=== PATIENT | female | born 1945 | race Caucasian/White ===

== ENCOUNTER 2016-04-07 10:56 | Observation (INO) | payer OTHER ==
[~2016-04-07] VITALS: Ht 162.6 cm; Wt 83.9 kg
[2016-04-07 12:03] LABS: HEMATOCRIT 50.3 % (36.0-46.0); MCH 28.7 PG (29.0-34.0); MCHC 33.4 G/DL (30.0-36.0); MCV 85.8 FL (83-99); MEAN PLAT.VOLUME 10.7 uM^3 (9.5-12.4); PLATELET COUNT 305 K/uL (156-360); RBC DIS.WIDTH-CV 13.1 % (11.8-14.6); RBC DIS.WIDTH-SD 40.7 % (39-53); RED BLOOD COUNT 5.86 M/uL (3.80-5.20); WHITE BLOOD COUNT 11.1 K/uL (4.1-10.2)
[2016-04-07 12:18] LABS: CHLORIDE 107 mEq/L (99-109); POTASSIUM 4.2 mEq/L (3.7-5.4); SODIUM 141 mEq/L (136-147)
[2016-04-07] MEDS ORDERED: LISINOPRIL10 MG PO (12:19)
[2016-04-07 12:20] LABS: GLUCOSE 127 mg/dL (70-99)
[2016-04-07] MEDS ORDERED: ACETAMINOPHN-T1 EACH PO (12:20)
[2016-04-07 12:21] LABS: ANION GAP 11 MEQ/L (2-14)
[2016-04-07] MEDS ORDERED: LOPRESSOR50 MG PO (12:21)
[2016-04-07] MEDS ORDERED: LO-DOSE ASPIRIN81 M2 PO (12:22)
[2016-04-07] MEDS ORDERED: LEVO-T75 MCG PO (12:22)
[2016-04-07] MEDS ORDERED: DIGOXIN250 MCG PO (12:23)
[2016-04-07] MEDS ORDERED: ZOCOR20 MG PO (12:23)
[2016-04-07 12:24] LABS: GFR ESTIMATE (CALCULATED) > 59 mL/min/; UREA NITROGEN (BUN) 14 mg/dL (9-23)
[2016-04-07 12:26] LABS: TROP-I INTERPRETATION NEGATIVE; TROPONIN-I < 0.01 ng/mL (0.0-0.30)
[2016-04-07 14:02] LABS: ADD MIUA? YES; BILIRUBIN NEGATIVE; BLOOD NEGATIVE; COLOR YELLOW ((YELLOW)); GLUCOSE (STRIP) NEGATIVE; KETONES NEGATIVE; LEUKOCYTES LARGE; NITRITE NEGATIVE; PROTEIN (STRIP) TRACE; SPECIFIC GRAVITY 1.018 (1.000-1.030); UROBILINOGEN 0.2 MG/DL (0.2-1.0)
[2016-04-07 14:32] LABS: CASTS NONE SEEN /LPF; CRYSTALS NONE SEEN; EPITHELIAL CELLS 1+; MUCUS NONE SEEN; PATHOLOGICAL CAST NONE SEEN; RED BLOOD CELLS 0-5 /HPF (0-5); SMALL ROUND CELL NONE SEEN; UCUL ADDED? NO; YEAST-LIKE CELL NONE SEEN
[2016-04-07 14:50] LABS: BACTERIA RARE
[2016-04-07 15:53] VITALS: BP 203/89
[2016-04-07 19:45] VITALS: BP 180/90
[2016-04-07 23:31] VITALS: BP 180/82
[2016-04-08] VITALS (7 sets, daily range): BP systolic 138–190; BP diastolic 68–82
[2016-04-08 05:57] LABS: BASOPHIL COUNT 0.1 K/uL (0-0.1); EOSINOPHIL (%) 2.6 % (0-5); EOSINOPHIL COUNT 0.3 K/uL (0-0.3); HEMATOCRIT 48.9 % (36.0-46.0); IMMATURE GRANULOCYTE (%) 0.1 % (0.0-0.7); LYMPHOCYTE COUNT 3.3 K/uL (1.0-2.8); MCH 30.3 PG (29.0-34.0); MCHC 34.4 G/DL (30.0-36.0); MCV 88.3 FL (83-99); MEAN PLAT.VOLUME 11.2 uM^3 (9.5-12.4); MONOCYTE (%) 5.9 % (3-12); MONOCYTE COUNT 0.6 K/uL (0-0.8); NEUTROPHIL (%) 57.1 % (45-76); NEUTROPHIL COUNT 5.6 K/uL (1.8-6.4); PLATELET COUNT 276 K/uL (156-360); RBC DIS.WIDTH-CV 13.3 % (11.8-14.6); RBC DIS.WIDTH-SD 42.9 % (39-53); RED BLOOD COUNT 5.54 M/uL (3.80-5.20); WHITE BLOOD COUNT 9.7 K/uL (4.1-10.2)
[2016-04-08 06:22] LABS: ANION GAP 10 MEQ/L (2-14); CHLORIDE 102 MEQ/L (99-109); GFR ESTIMATE (CALCULATED) > 59 mL/min/; GLUCOSE 112 mg/dL (70-99); POTASSIUM 4.2 MEQ/L (3.7-5.4); SAMPLE HEMOLYSIS CHECK 0; SAMPLE ICTERIC CHECK 0; SAMPLE LIPEMIA CHECK 0; SODIUM 141 MEQ/L (136-147); UREA NITROGEN (BUN) 13 mg/dL (9-23)
[2016-04-09 04:00] VITALS: BP 144/82
[2016-04-09 06:23] LABS: ANION GAP 11 MEQ/L (2-14); CHLORIDE 101 MEQ/L (99-109); GFR ESTIMATE (CALCULATED) > 59 mL/min/; GLUCOSE 111 mg/dL (70-99); SAMPLE HEMOLYSIS CHECK 0; SAMPLE ICTERIC CHECK 0; SAMPLE LIPEMIA CHECK 0; SODIUM 141 MEQ/L (136-147); UREA NITROGEN (BUN) 16 mg/dL (9-23)
[2016-04-09 12:00] VITALS: BP 140/85
[2016-04-09] MEDS ORDERED: DIGOXIN250 MCG PO (12:58)
[2016-04-09] MEDS ORDERED: TYLENOL EXTRA500 MG PO (12:59)
[2016-04-09] MEDS ORDERED: HYDROCORTISON28.4 GM TP (13:01)
[2016-04-09 15:25] VITALS: BP 138/74
[2016-04-09] MEDS ORDERED: HYDROCHLOROTHIA25 MG PO (16:32)
[2016-04-09] MEDS ORDERED: Procardia XL,Adalat PO (16:32)
== END 2016-04-09 17:27 | disposition home or self-care (01) ==
LOC: EME 10:56 → 5WEST 14:07 → EDOF 14:07 → 5WEST 15:40
PROVIDERS: Emergency Medicine; Family Medicine
DX: I16.0 Hypertensive urgency (principal); I10 Essential (primary) hypertension; E78.5 Hyperlipidemia, unspecified; E03.9 Hypothyroidism, unspecified; Z86.79 Personal history of other diseases of the circulatory system; Z88.1 Allergy status to other antibiotic agents
CPT/HCPCS: 71020; 80048; 81003; 84484; 85025; 85027; 93005; 99281; 99285; G0378; J1650